=== PATIENT | female | born 1990 ===

== ENCOUNTER 2016-09-03 07:29 | Emergency (ER) | payer OTHER ==
[2016-09-03 07:30] VITALS: BMI 28.5
== END 2016-09-03 09:40 | disposition home or self-care (01) ==
LOC: H.EROB2 07:29 → H.EDERROR 07:29 → H.EROB2 09:40
DX: O47.1 False labor at or after 37 completed weeks of gestation (principal); Z3A.39 39 weeks gestation of pregnancy